=== PATIENT | male | born 1965 | race Caucasian/White ===

== ENCOUNTER → 2016-09-02 | Outpatient (CLI) | payer OTHER ==
[~2016-09-02] MED LIST: /ATOR40TA; /MIRT15TA PO; /ONDA4TA PO; /PANT40TA OR; CARA1SUS PO; FIORTAB PO; LIPI10TA PO; LOPR50TA OR; LORA0.5T OR; PRIL40CA OR; RELPAX; SOMA250T; TOPI200T; TOPR25TA PO; ULTR200T; ZOCO40TA; ZOLO100T OR
--- NOTE | 2016-09-26 00:27 | ECWPNPC ---
PATIENT NAME: COLETTE LEIVA JR : 1965 GENDER: MALE VISIT DATE: 09/02/2016 DISCHARGE DATE: 09/02/16 1236 VISIT LOCKED DATE TIME: PHYSICIAN: ELAINA BARRON RESOURCE: ELAINA BARRON REASON FOR APPOINTMENT 1. POST PROCED F/U NECK.HEAD HISTORY OF PRESENT ILLNESS HISTORY OF PRESENT ILLNESS: PAIN THE PATIENT DESCRIBES THE PAIN... FALL RISK SCREENING: SCREENING :NO FALLS IN THE PAST YEAR TODAY'S VISIT: NOTES: RATES PAIN TODAY TODAY 6/10, WORST AREA OF PAIN IN LOW BACK NEAR TAILBONE. HAS N/T IN TOES LEFT FOOT. HAD SOME FALLS OVER WINTER BUT NO INJRY. STILL WITH FREQ LOOSE STOOLS. REPORTS HEADACHES RESPOND WELL TO FIORICET AND SUNGLASSES.. CURRENT MEDICATIONS TAKING PANTOPRAZOLE SODIUM 40 MG TABLET DELAYED RELEASE ORAL DAILY TAKING SERTRALINE HCL 100 MG TABLET ORAL DAILY TAKING ATENOLOL 25 MG TABLET 1/2 TABLET ORALLY DAILY TAKING ATORVASTATIN CALCIUM 10 MG TABLET 1/2 TABLET ORAL DAILY TAKING VENTOLIN HFA 108 (90 BASE) MCG/ACT AEROSOL SOLUTION 2 PUFFS NEEDED INHALATION EVERY 4 HRS TAKING FIORICET 50-300-40 MG CAPSULE 1 CAPSULE NEEDED ORALLY BID PRN TAKING LORAZEPAM 1 MG TABLET NEEDED ORALLY THREE TIMES A DAY NOT-TAKING CHOLESTYRAMINE 4 GM/DOSE POWDER ORAL NOT-TAKING CARAFATE 1 GM/10ML SUSPENSION ORAL MEDICATION LIST REVIEWED AND RECONCILED WITH THE PATIENT PAST MEDICAL HISTORY ASTHMA ANXIETY CLAUSTROPHOBIA DEPRESSION RENAL INSUFFIENCY HEADACHES GERD HTN KIDNEY STONES ALLERGIES DARVOCET-N 50: ANXIETY: ALLERGY OXYCODONE HCL: ANXIETY: ALLERGY STATINS (FOR ALLERGY USE ONLY): ABDOMINAL PAIN: SIDE EFFECTS SURGICAL HISTORY CHOLECYSTECTOMY KIDNEY STONES CRUSHED REVIEW OF SYSTEMS CONSTITUTIONAL: ANY CHANGE IN YOUR MEDICAL CONDITION? YES, LOW BACK PAIN IS WORSE THAN THE NECK PAIN . CHILLS NO . FEVER NO . INFECTION: DO YOU HAVE NEW INFECTIONS? NO . DO YOU HAVE HISTORY OF MRSA? NO . MUSCULOSKELETAL: ANY NEW PATTERNS OF PAIN OR NUMBNESS? YES, INCREASED PAIN IN LOW BACK AREA . GASTROENTEROLOGY: ANY NEW CHANGE IN BOWEL CONTROL? NO . GENITOURINARY: ANY NEW CHANGE IN BLADDER CONTROL? NO . IS THERE A CHANCE YOU COULD BE ? NO . HEMATOLOGY/LYMPH: DO YOU TAKE ANY BLOOD THINNERS? (FOR EXAMPLE- COUMADIN, PLAVIX, AGGRENOX, PLATEL, PRADAXA, OR XARELTO) NO . WHEN WAS YOUR LAST DOSE? DATE: TIME: . NEUROLOGY: HAVE YOU FALLEN IN THE PAST 6 MONTHS? NO . ANY NEW EXTREMITY NUMBNESS OR WEAKNESS? NO . CARDIOLOGY: DO YOU HAVE A PACEMAKER OR DEFIBRILLATOR? NO . RESPIRATORY: HAVE YOU BEEN SICK IN THE PAST WEEK? NO . FEVER NO . FLU LIKE SYMPTOMS? NO . COUGH NO . INTEGUMENTARY: DO YOU HAVE ANY RASHES OR OPEN SORES? NO . ALLERGIC/IMMUNO: ARE YOU ALLERGIC TO SHELLFISH OR IV DYE? NO . ANY NEW ALLERGIES? NO . PSYCHIATRIC: DO YOU HAVE THOUGHTS OF HURTING YOURSELF OR SOMEONE ELSE? NO . ARE YOU ABUSED, NEGLECTED, OR IN AN UNSAFE ENVIRONMENT? NO . ENDOCRINOLOGY: ARE YOU DIABETIC? NO . OTHER: DO YOU NEED ANY PRESCRIPTIONS? NO . IF YES, PLEASE LIST: ____ . ANY NEW PROBLEMS WITH YOUR MEDICATIONS? NO . WHEN DID YOU LAST EAT? ____ . WHEN DID YOU LAST DRINK? ____ . WHAT DID YOU LAST DRINK? ____ . NAME OF PERSON DRIVING YOU HOME? ____ . DO YOU HAVE ANY OTHER QUESTIONS OR CONCERNS NO . REVIEWED BY: PROVIDER: . VITAL SIGNS WT 260 LBS, HT 72 IN, BMI 35.26 INDEX, BP 123/75 MM HG, HR 58 /MIN, RR 16 /MIN, TEMP 97.1 F, OXYGEN SAT % 96%, NA INITIALS AW 1155, REVIEWED BY: CS. EXAMINATION GENERAL EXAMINATION: PSYCHALERT , ORIENTED X 3 . IS WARY.. LUNGS:CLEAR TO AUSCULTATION BILATERALLY. HEART:HEART RATE REGULAR. MUSCULOSKELETAL:POINT TENDERNESS OVER BILATERAL OCCIPITAL NOTCH. DECREASED ROM WITH NECK FLEXION/ROTATION/EXTENSION. , TRIGGER POINTS AND TIGHT FIBROUS BANDS IDENTIFIED OVER TRAPEZIUS MUSCLES BILATERALLY. ABLE TO RISE EASILY TO STANDING POSITION. GAIT NON AANTALGIC.. NEUROLOGIC EXAM:SOME PHOTOPHOBIA - EOM'S INTACT WITHOUT NYSTAGMUS. , CN'S II-XII GROSSLY INTACT. 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 PROCEDURE CODES FA211 ESTABILISHED PATIENT [facility] CHARGE DISPOSITION & COMMUNICATION FOLLOW UP AFTER INJECTION (REASON: CHECK AUTH FOFR TPI LOW BACK RIGHT SIDE) ELECTRONICALLY SIGNED BY DIANNA QUINONES ON 09/25/2016 AT 10:46 AM EDT DISCLAIMER : THIS IS A VISIT SUMMARY EXTRACTED FROM THE [employer] CHART. IT IS NOT A COPY OF THE [employer] PROGRESS NOTE. TAYLER
== END ==
LOC: M PAIN 11:20
PROVIDERS: ATTEND Nurse Practitioner Family
DX: G89.29 Other chronic pain (principal); M79.1 Myalgia; M54.81 Occipital neuralgia; G43.909 Migraine, unspecified, not intractable, without status migrainosus; J45.909 Unspecified asthma, uncomplicated; F41.9 Anxiety disorder, unspecified; F40.240 Claustrophobia; F32.9 Major depressive disorder, single episode, unspecified; N28.9 Disorder of kidney and ureter, unspecified; K21.9 Gastro-esophageal reflux disease without esophagitis; I10 Essential (primary) hypertension; Z88.5 Allergy status to narcotic agent; Z88.8 Allergy status to other drugs, medicaments and biological substances; Z79.899 Other long term (current) drug therapy